=== PATIENT | male | born 1950 | race Caucasian/White ===

== ENCOUNTER → 2024-10-05 09:06 | Outpatient (REF) | payer OTHER, SELFPAY | LOC: HWRAD 09:06 | PROVIDERS: ATTENDING PHYSICIAN Family Medicine | DX: J32.1 Chronic frontal sinusitis (principal); Z86.39 Personal history of other endocrine, nutritional and metabolic disease | CPT/HCPCS: 70486 ==

== ENCOUNTER → 2024-11-20 14:42 | Outpatient (REF) | payer OTHER, SELFPAY | LOC: HWRCS 14:42 | PROVIDERS: ATTENDING PHYSICIAN Family Medicine | DX: Z87.891 Personal history of nicotine dependence (principal) | CPT/HCPCS: 93306 ==

== ENCOUNTER → 2025-05-17 10:18 | Outpatient (REF) | payer OTHER, SELFPAY | LOC: HWRCS 10:18 | PROVIDERS: ATTENDING PHYSICIAN Nuclear Medicine Nuclear Cardiology; FAMILY PHYSICIAN Family Medicine | DX: I35.0 Nonrheumatic aortic (valve) stenosis (principal) | CPT/HCPCS: 93306 ==